=== PATIENT | male | born 1945 | race Caucasian/White ===

== ENCOUNTER 2016-11-30 05:39 | Observation (INO) | payer MEDICARE, BC ==
[2016-11-27 10:18] VITALS: BMI 23.5
[2016-11-30] VITALS (27 sets, daily range): BP systolic 98–140; BP diastolic 54–86; PULSE 52–88; RESP 13–21; Ht 170.2 cm; Wt 70.1 kg
[~2016-11-30] VITALS: Ht 170.2 cm; Wt 70.1 kg
--- NOTE | 2016-11-30 06:20 | HPN ---
Date/Time of Note Date/Time of Note DATE: 11/30/16 TIME: 06:20 Interval H&P Admission Note Pt. seen H&P reviewed: No system changes JN SIDDIQUI MD Nov 30, 2016 06:20
[2016-11-30] MEDS ORDERED: ENOX100D2 SC (06:34)
[2016-11-30] MEDS ORDERED: ATOR40TA68 PO (06:34)
[2016-11-30] MEDS ORDERED: HYDR25TA6 PO (06:34)
[2016-11-30] MEDS ORDERED: COU2 PO (06:34)
[2016-11-30] MEDS ORDERED: METO100T13 PO (06:34)
[2016-11-30] MEDS ORDERED: ENAL5TAB PO (06:34)
[2016-11-30 07:03] LABS: BASOPHILS % 0.5 % (0.0-2.0); EOSINOPHILS # 0.3 10^3/ul (0.0-0.5); EOSINOPHILS % 3.5 % (0.0-7.0); HEMATOCRIT 41.8 % (42.0-52.0); LYMPHOCYTES % 12.1 % (15.0-51.0); MEAN CORPUSCULAR HEMOGLOBIN 28.8 pg (29.0-33.0); MEAN CORPUSCULAR HGB CONC 33.5 g/dl (32.0-37.0); MEAN PLATELET VOLUME 11.5 fl (7.4-10.4); MONOCYTE # 0.8 10^3/ul (0.3-0.9); MONOCYTES % 9.1 % (0.0-11.0); NEUTROPHILS % 74.4 % (39.0-77.0); PLATELET COUNT 158 10^3/UL (140-415); RED BLOOD COUNT 4.86 10^6/ul (4.70-6.10); RED CELL DISTRIBUTION WIDTH 14.9 % (11.5-14.5); WHITE BLOOD COUNT 8.3 10^3/ul (4.8-10.8)
[2016-11-30] MEDS ORDERED: FENTAnyl 50 MCG/ML VIAL ONE (07:04)
[2016-11-30] MEDS ORDERED: MIDAZOLAM 1 MG/ML 2 ML INJ ONE (07:04)
[2016-11-30 07:15] LABS: INR 1.1; PROTIME 14.2 Sec (12.2-14.2); PT RATIO 1.1
[2016-11-30 07:16] LABS: ALBUMIN 3.8 g/dl (3.3-4.9); ALBUMIN/GLOBULIN RATIO 1.46; BILIRUBIN,INDIRECT 0.6 mg/dl (0-1.1); BILIRUBIN,TOTAL 0.6 mg/dl (0.2-1.3); PARTIAL THROMBOPLASTIN TIME 34.3 Sec (25.0-35.0); TOTAL PROTEIN 6.4 g/dl (6.1-8.1)
[2016-11-30] MEDS ORDERED: ROPIVACAINE 0.5 % 30 ML VIAL ONE ×2 (07:16→08:16)
[2016-11-30] MEDS ORDERED: BUPIVACAINE 0.5% (SDV) 30 ML INJ ONE (07:17)
[2016-11-30 07:18] LABS: CALCIUM 9.5 mg/dl (8.4-10.2); CREATININE 0.87 mg/dl (0.61-1.24); POTASSIUM 3.5 mmol/L (3.5-5.1)
[2016-11-30] MEDS ORDERED: GELATIN SIZE 100 SPONGE ONE (08:16)
[2016-11-30] MEDS ORDERED: THROMBIN 5000 UNIT VIAL ONE (08:16)
[2016-11-30] MEDS ORDERED: POVIDONE IODINE 10% 28.4 GM OINT ONE (08:17)
[2016-11-30] MEDS ORDERED: POLYMYXIN/BACITRACIN 1L IRRIG ONE ×2 (08:17→10:36)
[2016-11-30] MEDS ORDERED: ONDANSETRON 4 MG INJ ONE (11:33)
[2016-11-30] MEDS ORDERED: PROPOFOL 20 ML ONE (11:33)
[2016-11-30] MEDS ORDERED: CEFAZOLIN 1 GM INJ ONE (11:33)
[2016-11-30] MEDS ORDERED: ROCURONIUM 50 MG INJ ONE (11:33)
[2016-11-30] MEDS ORDERED: LIDOCAINE 2% (SDV) 5 ML INJ ONE (11:33)
[2016-11-30] MEDS: SOD CHLORIDE 0.9% 1,000 ML IV SCH ×3 (12:26→22:26)
[2016-11-30] MEDS ORDERED: CEFAZOLIN 1 GM INJ IV SCH (12:30)
[2016-11-30] MEDS ORDERED: BISACODYL 10 MG SUPP PR PRN (12:30)
[2016-11-30] MEDS ORDERED: DIPHENHYDRAMINE 25 MG CAP PO PRN (12:30)
[2016-11-30] MEDS ORDERED: ONDANSETRON 4 MG INJ IV PRN ×2 (12:30→13:00)
[2016-11-30] MEDS ORDERED: morphine 10 MG INJ IV PRN (12:30)
--- NOTE | 2016-11-30 12:37 | OPPN ---
Date/Time of Note Date/Time of Note DATE: 11/30/16 TIME: 12:37 JN SIDDIQUI MD Nov 30, 2016 12:37
[2016-11-30] MEDS ORDERED: morphine 1 MG/ML 30 ML (PCA) ONE (12:39)
[2016-11-30] MEDS ORDERED: NALOXONE (0.4 MG/ML) INJ IV PRN (13:00)
[2016-11-30] MEDS: morphine 1 MG/ML 30 ML (PCA) IV SCH (13:00)
[2016-11-30] MEDS ORDERED: DIPHENHYDRAMINE 50 MG INJ IV PRN (13:00)
[2016-11-30] MEDS ORDERED: FENTAnyl 50 MCG/ML VIAL IV PRN (13:00)
[2016-11-30] MEDS ORDERED: HYDROmorphONE (0.2 MG/ML) 10ML SYG IV PRN ×2 (13:00)
[2016-11-30] MEDS ORDERED: METOCLOPRAMIDE 10 MG INJ IV PRN (13:00)
[2016-11-30] MEDS ORDERED: MEPERIDINE 25 MG INJ IV PRN (13:00)
[2016-11-30] MEDS: CEFAZOLIN 1 GM/50 ML (PMX) 50 ML IVPB SCH ×2 (13:10→20:20)
[2016-11-30] MEDS: METOPROLOL (XL) 100 MG TAB PO SCH ×2 (14:00→20:22)
[2016-11-30] MEDS: ENALAPRIL 5 MG TAB PO SCH (14:00)
--- NOTE | 2016-11-30 16:02 | RADRPT ---
PROCEDURE: X-ray fluoroscopy guidance. CLINICAL INDICATION: Left ankle fusion. TECHNIQUE: Fluoroscopic guidance was utilized in the region of the left ankle for the procedure. Fluoroscopy time: 1.1 minutes Number of images/sequences: 15 images. COMPARISON: None available. FINDINGS: The images demonstrate postoperative change related to ankle fusion with an intramedullar y nail and proximal and distal interlocking screws. There is also plate and screw fixation hardware anterior to the ankle joint. IMPRESSION: 1. X-ray fluoroscopic guidance utilized for the intraoperative procedure. RPTAT: HLBP .Lei Charles MD, Date Time Electronically viewed and signed by .Lei Charles MD, MD on 11/30/2016 16:02 .P/
--- NOTE | 2016-11-30 17:37 | OPR ---
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 OPERATIONS: 1. Oblique fibular osteotomy and removal of the distal fibular bony portion. 2. Arthrodesis of the left ankle. 3. Arthrodesis of the left subtalar joint. 4. Insertion of autograft ignite and augment into the arthrodesis sites. 5. Insertion of a TTC Valor intramedullary nail 10 mm x 150 mm with cross screws. 6. Use of fluoroscopy to verify position alignment of the fusion and hardware. 7. Short leg cast. Extremely complex difficult procedure because of the patient had severe cystic changes in his ankle with bone loss and a lot of fibrosis and scarring. Because of the abnormal anatomy, the difficulty cleaning out the anatomy and realigning the leg, inserting the veronica and an additional 60 minutes of time was spent (22). SURGEON: Dr. Abdiel Hendrix. HAM STRIPPER: Dr. Jose Eduardo Hendrix. SECOND SONG LYRICIST: Dr. KESHA Diaz. ANESTHESIA: General with popliteal block. TOURNIQUET TIME: 127 minutes. OPERATIVE PROCEDURE: The patient taken operating placed supine position. Satisfactory popliteal block was given and satisfactory general anesthesia was administered and 2 g Ancef intravenously. The left leg was prepped and draped in usual manner. Incision was made along the fibula and carried for 6 cm proximal and then angled toward the fourth metatarsal. Full- thickness flaps were made. The periosteum was lifted up over the fibula anteriorly then reflected posteriorly being careful not to injure the peroneal tendons. Several centimeters above the ankle joint an oblique fibular osteotomy was made with a saw and then finished with an osteotome. The entire distal portion of the fibula was then removed to be used later as bone graft. The ankle joint was quite scarred in and abnormal. There was scar tissue which was sent for Gram stain, which was negative for any cells or infection. Tissue was also sent for culture and sensitivity. Using a laminar cigar packer and grader the articular surfaces were quite cystic and most of the distal tibia and the talus and the talus was collapsed. Different angled curettes were used to remove all the cystic material to subchondral bone. Including over the area of the medial malleolus. A bur was used to remove 1 mm of bone to good bleeding surface throughout the distal tibia and medial malleolus. Osteophytes were removed anteriorly and laterally. Then 1 mm of bone was then removed along the talar dome. More bone had to be removed medially than laterally because of the severe cystic change. Multiple "spot welds" were made to facilitate healing in the talus and the tibia. Multiple drill holes were made at 0.062 K-wire in multiple holes were made with an osteotome. Attention turned the subtalar joint. She also had degenerative changes, but not as bad. Th articular surface was removed with an osteotome and then with a curette until all good bleeding surfaces were seen. Lamina cigar packer and grader was used to facilitate access. After all the articular cartilage had been removed the sinus tarsi was completely cleaned out. A bur was used to bur along the sinus tarsi and remove 1 mm bone along the subtalar joint. Multiple spot welds were made in the talus and calcaneus. Multiple drill holes were made. Multiple osteotome holes were made as well. Once everything had been adequately prepared, the fibula was ground up in a bone mill and mixed with blood and ignite allograft and also augment. The guide pin was inserted from the [place]hel[place] TTC nail. We checked in AP and lateral planes, once it was seen to be in good position we put a K-wire in laterally to hold the ankle in good position. Both mediolaterally and dorsum plantar dorsiflexion and slight valgus. The ankle was medialized. The calcaneus, talus and tibia were reamed up to a 10.5 of a 10 nail by 150 mm could be inserted. Prior to inserting the nail bone graft was inserted, particularly in the medial aspect of the ankle were it was deficient, throughout the ankle and throughout the subtalar joint and sinus tarsi and packed in tightly. With the foot positioned appropriately the Valor nail was inserted. Excellent position and alignment were seen in AP and lateral fluoroscopic views. The proximal screws were placed through stab holes medially and verified under fluoroscopy. The calcaneal screw was placed next. We compressed the veronica, we put in 1 more calcaneal pin from lateral incision. Elected not to put the subtalar pin because the subtalar bone was so deficient. The final fluoroscopic view showed excellent position and alignment of the veronica and the screws in AP, lateral, and axial planes with good position of the foot. The tourniquet was released. Bleeders were coagulated. Wounds irrigated with antibiotic solution through the lap sponges so we did not take out any bone graft. Additional bone graft was then packed tightly in the ankle circumferentially, as well as in the subtalar joint circumferential. The subcutaneous tissues were then closed with 2-0 and 3-0 dyed Vicryl and the skin with 4-0 black nylon. Ankle block was done 0.5 percent ropivacaine on the saphenous nerve. A compression dressing was then applied, as well as history short-leg cast in neutral position. At the end of the procedure, sponge, needle count was correct. The patient tolerated the procedure well and taken to recovery room. SONG LYRICIST ORTHOPEDIC SURGEON: Director Of Occupational Therapy orthopedic surgeon was used at my request. The assistant pastry chef helped with the exposure. Director Of Occupational Therapy also helped to insert the nail while I held the ankle reduced in proper position and helped with bone grafting. Without a skilled orthopedic surgeon assistant pastry chef this procedure could not have been performed appropriately should be compensated as such. Dictated By: Abdiel Hendrix MD /[email or web address]/amira /Document#: [id number] KATHRYN
[2016-11-30] MEDS: TAMSULOSIN (SR) 0.4 MG CAP PO SCH (20:20)
[2016-11-30] MEDS: SENNA/DOCUSATE NA (8.6MG/50MG) TAB PO SCH (20:21)
[2016-11-30] MEDS: ATORVASTATIN 40 MG TAB PO SCH (20:21)
--- NOTE | 2016-11-30 23:05 | CONS ---
DATE OF ADMISSION: 11/30/2016 DATE OF CONSULTATION: 11/30/2016 Thank you very much for allowing me to evaluate the above patient, who just underwent left ankle surgery. HISTORICAL EVENTS: As you well know, this patient has had progressive disabling pain involving his left ankle and underwent surgical intervention today. Postoperatively, he denies cough, wheezing, shortness of breath, nausea, vomiting, abdominal or chest pain. PAST MEDICAL HISTORY: Includes: 1. Known coronary disease, undergoing a Cardiolite nuclear study in April of this year that revealed no ischemia. 2. Aortic valve replacement. 3. Dilated aorta, as revealed by CT scanning in October 2016, with the aorta measuring 4.37 cm. 4. History of prostate cancer. 5. History of endocarditis and placement of aortic valve in 1992. 6. History of ischemic colitis. 7. OK in 2006. 8. Degenerative arthritis. 9. Hyperlipidemia. MEDICATION: 1. Atorvastatin 40 mg per day. 2. Enalapril 10 mg per day. 3. Hydrochlorothiazide 25 mg per day. 4. Lopressor 100 mg a day. 5. Coumadin 4 mg per day. 6. Flomax 0.4 mg per day. PHYSICAL EXAMINATION: GENERAL APPEARANCE: [place] male in no acute distress. VITAL SIGNS: BP 128/80, pulse 70, respirations 20. He was afebrile. HEENT: Eyes, extraocular muscles were full. Nose, mouth and throat, normal. NECK: Was supple. There was no jugular venous distention, thyroid enlargement, adenopathy. LUNGS: Clear. HEART: Rhythm regular. No murmur. No 3rd or 4th sound. ABDOMEN: Nontender. Liver and spleen were not palpable. No mass or tenderness were noted. EXTREMITIES: No edema. Calves nontender. IMPRESSION: 1. Stable postop, left ankle. 2. History of hyperlipidemia. To continue statin. 3. Aortic valve replacement, having been maintained on Coumadin and received Lovenox bridge. Will review with you when you would like to begin Coumadin again. 4. Hypertension. Will continue angiotensin-converting enzyme inhibitor and angiotensin II receptor carlita but hold for systolic less than 110 or heart rate less than 55. 5. History of difficulty voiding. A Jackman catheter to be placed and will monitor postvoid residuals. Dictated By: Mark De Jesus MD /[email or web address]/ramírez /Document#: [id number] CC: Abdiel Hendrix MD;*EndCC*
[2016-12-01 00:12] VITALS: BP 112/66; RESP 19
[2016-12-01] MEDS: SOD CHLORIDE 0.9% 1,000 ML IV SCH ×2 (01:38→17:16)
[2016-12-01] MEDS: CEFAZOLIN 1 GM/50 ML (PMX) 50 ML IVPB SCH ×3 (03:47→21:11)
[2016-12-01 05:29] VITALS: BP 118/63; PULSE 87; RESP 18
[2016-12-01 05:32] LABS: INR 1.23; PROTIME 15.6 Sec (12.2-14.2); PT RATIO 1.2
[2016-12-01 05:33] LABS: PARTIAL THROMBOPLASTIN TIME 36.5 Sec (25.0-35.0)
[2016-12-01 05:34] LABS: MAGNESIUM 1.5 mg/dl (1.7-2.5); PHOSPHORUS 3.2 mg/dl (2.5-4.9)
[2016-12-01 05:45] LABS: BASOPHILS % 0.1 % (0.0-2.0); EOSINOPHILS # 0.1 10^3/ul (0.0-0.5); EOSINOPHILS % 1.3 % (0.0-7.0); HEMATOCRIT 36.3 % (42.0-52.0); HEMOGLOBIN 11.7 g/dl (14.0-18.0); LYMPHOCYTES # 0.9 10^3/ul (0.8-2.9); LYMPHOCYTES % 9.3 % (15.0-51.0); MEAN CORPUSCULAR HEMOGLOBIN 28.2 pg (29.0-33.0); MEAN CORPUSCULAR HGB CONC 32.2 g/dl (32.0-37.0); MEAN CORPUSCULAR VOLUME 87.5 fl (82.0-101.0); MEAN PLATELET VOLUME 11.7 fl (7.4-10.4); MONOCYTES % 10.2 % (0.0-11.0); NEUTROPHILS % 78.9 % (39.0-77.0); PLATELET COUNT 139 10^3/UL (140-415); POSITIVE DIFF @See below; RED BLOOD COUNT 4.15 10^6/ul (4.70-6.10); RED CELL DISTRIBUTION WIDTH 15.1 % (11.5-14.5); WHITE BLOOD COUNT 9.5 10^3/ul (4.8-10.8)
--- NOTE | 2016-12-01 06:49 | PN ---
Date/Time of Note Date/Time of Note DATE: 12/01/16 TIME: 06:43 Assessment/Plan VTE Prophylaxis VTE Prophylaxis Intervention: SCD's Lines/Catheters IV Catheter Type (from Nrsg): Peripheral IV Urinary Cath still in place: Yes Reason Cath still needed: urinary retention Assessment/Plan Chief Complaint/Hosp Course POD # 1 s/p L TTC fusion with nail Problems: Assessment/Plan Continue pain control -discussed with patient that pain will start increasing as block wears off PT to start today Coumadin per Supervisor [employer] Elevation at all times while in bed Continue buenrostro Post-op abx Dispo: pending, possible DC tomorrow Subjective 24 Hr Interval Summary Free Text/Dictation Patient overall doing well. Had buenrostro placed yesterday afternoon for urinary retention. Denies pain, states foot is still numb. Denies SOB/CP. Tolerating diet. Exam/Review of Systems Vital Signs Vitals Vital Signs Date Time Temp Pulse Resp B/P Pulse Ox O2 Delivery O2 Flow Rate FiO2 12/01/16 05:29 98.3 87 18 118/63 98 Room Air Intake and Output 11/30/16 11/30/16 12/01/16 15:00 23:00 07:00 Intake Total 1150 ml 1200 ml 1700 ml Output Total 30 ml 1900 ml 1700 ml Balance 1120 ml -700 ml 0 ml Exam Foot elevated in cast, cast well fitting Toes WWP Patient denies sensation/motor function this AM Results Result Diagram: 12/01/16 0450 11/30/16 0610 Results 24 hrs Laboratory Tests Test 12/01/16 04:50 White Blood Count 9.5 Red Blood Count 4.15 L Hemoglobin 11.7 L Hematocrit 36.3 L Mean Corpuscular Volume 87.5 Mean Corpuscular Hemoglobin 28.2 L Mean Corpuscular Hemoglobin Concent 32.2 Red Cell Distribution Width 15.1 H Platelet Count 139 L Mean Platelet Volume 11.7 H Neutrophils % 78.9 H Lymphocytes % 9.3 L Monocytes % 10.2 Eosinophils % 1.3 Basophils % 0.1 Nucleated Red Blood Cells % 0.0 Neutrophils # (Manual) 7.5 Lymphocytes # 0.9 Monocytes # 1.0 H Eosinophils # 0.1 Basophils # 0.0 Nucleated Red Blood Cells # 0.0 Prothrombin Time 15.6 H Prothrombin Time Ratio 1.2 INR International Normalized Ratio 1.23 Activated Partial Thromboplast Time 36.5 H Phosphorus Level 3.2 Magnesium Level 1.5 L Medications Medications Current Medications Cephalexin (Keflex) 500 mg Q8 PO ; Start 12/02/16 at 14:00 Oxycodone/ Acetaminophen 1 tab 1 tab Q4H PRN PO PAIN; Start 11/30/16 at 07:00 Cefazolin Sodium (Ancef 1 Gm/50 ml (Pmx)) 50 ml @ 100 mls/hr Q8H IVPB Last administered on 12/01/16 03:47; Admin Dose 100 MLS/HR; Start 11/30/16 at 12:30 ; Stop 12/02/16 at 04:59 Senna/Docusate Sodium (Senokot-S) 1 tab BID PO Last administered on 11/30/16 20:21; Admin Dose 1 TAB; Start 11/30/16 at 21:00 Magnesium Hydroxide (Milk Of Mag) 30 ml HS PRN PO IF NO BM BY POD #2; Start at 21:00; Stop 12/02/16 at 23:59 Bisacodyl 10 mg 10 mg DAILY PRN [place] CONSTIPATION; Start 11/30/16 at 12:30 Sodium Chloride (NS) 1,000 ml @ 100 mls/hr Q10H IV Last administered on 01:38; Admin Dose 100 MLS/HR; Start 11/30/16 at 12:26 Oxycodone/ Acetaminophen (Percocet (5/ 325)) 2 tab Q4H PRN PO PAIN; Start 11/30 at 12:30 Morphine Sulfate (morphine) 5 mg Q4H PRN IV PAIN LEVEL 7-10; Start 11/30/16 at 12:30 Ondansetron HCl (Zofran Inj) 4 mg Q4H PRN IV NAUSEA AND/OR VOMITING; Start 02/05 at 12:30 Diphenhydramine HCl (Benadryl) 25 mg Q4H PRN PO ITCHING; Start 11/30/16 at 12: 30 Morphine Sulfate (morphine) 1.5 MG DOSE 10 ... Q4PCA IV Last administered on 13:00; Admin Dose 30 MG; Start 11/30/16 at 12:30 Naloxone HCl (Narcan) 0.2 mg Q2M PRN IV FOR RESP RATE 8 OR LESS; Start at 13:00 Atorvastatin Calcium (Lipitor) 40 mg QHS PO Last administered on 11/30/16 20: 21; Admin Dose 40 MG; Start 11/30/16 at 21:00 Enalapril Maleate (Vasotec) 5 mg DAILY PO ; Start 11/30/16 at 14:00 Metoprolol Succinate (Toprol Xl) 50 mg BID PO Last administered on 11/30/16 20 :22; Admin Dose 50 MG; Start 11/30/16 at 14:00 Tamsulosin HCl (Flomax) 0.4 mg HS PO Last administered on 11/30/16 20:20; Admin Dose 0.4 MG; Start 11/30/16 at 21:00 JN SIDDIQUI MD Dec 01, 2016 06:49
[2016-12-01 08:02] VITALS: BP 121/61; RESP 18
[2016-12-01] MEDS: ENALAPRIL 5 MG TAB PO SCH (08:22)
[2016-12-01] MEDS: SENNA/DOCUSATE NA (8.6MG/50MG) TAB PO SCH ×2 (08:22→21:14)
[2016-12-01] MEDS: METOPROLOL (XL) 100 MG TAB PO SCH ×2 (08:23→21:14)
[2016-12-01] MEDS ORDERED: POTASSIUM CHLORIDE (SR) 10 MEQ TAB PO ONE (08:30)
--- NOTE | 2016-12-01 08:35 | CONS ---
Date/Time of Note Date/Time of Note DATE: 12/01/16 TIME: 08:33 Assessment/Plan Assessment/Plan Additional Assessment/Plan 1. Stable post op left foot surgery 2. Hx HBP, controlled 3. Aortic valve dz, stable, to resume coumadin today 4. Electrolyte imbalance, will replace 5. Prostatism, will leave buenrostro in place 1 additional day, u/a and cult ordered Consultation Date/Type/Reason Admit Date/Time Initial Consult Date Detailed Summary Cardiovascular: No chest pain, No orthopenea Gastrointestinal: no complaints Genitourinary: other (buenrostro in place) Musculoskeletal: other (mild left ankloe pain) Exam/Review of Systems Vital Signs Vitals Vital Signs Date Time Temp Pulse Resp B/P Pulse Ox O2 Delivery O2 Flow Rate FiO2 12/01/16 08:02 97.8 70 18 121/61 99 12/01/16 05:29 Room Air Intake and Output 11/30/16 11/30/16 12/01/16 15:00 23:00 07:00 Intake Total 1150 ml 1200 ml 1700 ml Output Total 30 ml 1900 ml 1700 ml Balance 1120 ml -700 ml 0 ml Exam Neck: No jvd Respiratory: clear to auscultation Cardiovascular: regular rate and rhythm Gastrointestinal: soft Extremities: No edema (right leg and no calf tend, left in cast) Results Result Diagram: 12/01/16 0450 11/30/16 0610 Results 24 hrs Laboratory Tests Test 12/01/16 04:50 White Blood Count 9.5 Red Blood Count 4.15 L Hemoglobin 11.7 L Hematocrit 36.3 L Mean Corpuscular Volume 87.5 Mean Corpuscular Hemoglobin 28.2 L Mean Corpuscular Hemoglobin Concent 32.2 Red Cell Distribution Width 15.1 H Platelet Count 139 L Mean Platelet Volume 11.7 H Neutrophils % 78.9 H Lymphocytes % 9.3 L Monocytes % 10.2 Eosinophils % 1.3 Basophils % 0.1 Nucleated Red Blood Cells % 0.0 Neutrophils # (Manual) 7.5 Lymphocytes # 0.9 Monocytes # 1.0 H Eosinophils # 0.1 Basophils # 0.0 Nucleated Red Blood Cells # 0.0 Prothrombin Time 15.6 H Prothrombin Time Ratio 1.2 INR International Normalized Ratio 1.23 Activated Partial Thromboplast Time 36.5 H Phosphorus Level 3.2 Magnesium Level 1.5 L Medications Medications Current Medications Cephalexin (Keflex) 500 mg Q8 PO ; Start 12/02/16 at 14:00 Oxycodone/ Acetaminophen 1 tab 1 tab Q4H PRN PO PAIN; Start 11/30/16 at 07:00 Cefazolin Sodium (Ancef 1 Gm/50 ml (Pmx)) 50 ml @ 100 mls/hr Q8H IVPB Last administered on 12/01/16 03:47; Admin Dose 100 MLS/HR; Start 11/30/16 at 12:30 ; Stop 12/02/16 at 04:59 Senna/Docusate Sodium (Senokot-S) 1 tab BID PO Last administered on 12/01/16 08:22; Admin Dose 1 TAB; Start 11/30/16 at 21:00 Magnesium Hydroxide (Milk Of Mag) 30 ml HS PRN PO IF NO BM BY POD #2; Start at 21:00; Stop 12/02/16 at 23:59 Bisacodyl 10 mg 10 mg DAILY PRN [place] CONSTIPATION; Start 11/30/16 at 12:30 Sodium Chloride (NS) 1,000 ml @ 100 mls/hr Q10H IV Last administered on 01:38; Admin Dose 100 MLS/HR; Start 11/30/16 at 12:26 Oxycodone/ Acetaminophen (Percocet (5/ 325)) 2 tab Q4H PRN PO PAIN; Start 11/30 at 12:30 Morphine Sulfate (morphine) 5 mg Q4H PRN IV PAIN LEVEL 7-10; Start 11/30/16 at 12:30 Ondansetron HCl (Zofran Inj) 4 mg Q4H PRN IV NAUSEA AND/OR VOMITING; Start 02/05 at 12:30 Diphenhydramine HCl (Benadryl) 25 mg Q4H PRN PO ITCHING; Start 11/30/16 at 12: 30 Morphine Sulfate (morphine) 1.5 MG DOSE 10 ... Q4PCA IV Last administered on 13:00; Admin Dose 30 MG; Start 11/30/16 at 12:30 Naloxone HCl (Narcan) 0.2 mg Q2M PRN IV FOR RESP RATE 8 OR LESS; Start at 13:00 Atorvastatin Calcium (Lipitor) 40 mg QHS PO Last administered on 11/30/16 20: 21; Admin Dose 40 MG; Start 11/30/16 at 21:00 Enalapril Maleate (Vasotec) 5 mg DAILY PO Last administered on 12/01/16 08:22 ; Admin Dose 5 MG; Start 11/30/16 at 14:00 Metoprolol Succinate (Toprol Xl) 50 mg BID PO Last administered on 12/01/16 08 :23; Admin Dose 50 MG; Start 11/30/16 at 14:00 Tamsulosin HCl (Flomax) 0.4 mg HS PO Last administered on 11/30/16 20:20; Admin Dose 0.4 MG; Start 11/30/16 at 21:00 KAELA BALDERRAMA MD Dec 01, 2016 08:35
[2016-12-01] MEDS ORDERED: MAGNESIUM SULFATE 3 GM in SOD CHLORIDE 0.9% 100 ML IVPB ONE (09:00)
[2016-12-01] MEDS ORDERED: WARFARIN 2 MG TAB PO ONE (17:00)
[2016-12-01] MEDS: OXYCODONE/ACETAMINOPHEN (5/325) TAB PO PRN ×2 (17:16→21:13)
[2016-12-01] MEDS: morphine 1 MG/ML 30 ML (PCA) IV SCH (18:49)
[2016-12-01 19:15] VITALS: BP 135/67; RESP 19
[2016-12-01 19:41] LABS: ADD UMIC YES; UR ASCORBIC ACID NEGATIVE (NEGATIVE); UR BILIRUBIN (Dip) NEGATIVE (NEGATIVE); UR BLOOD (Dip) 2+ mg/dL (NEGATIVE); UR CLARITY CLEAR (CLEAR); UR COLOR STRAW (YELLOW); UR GLUCOSE (Dip) NEGATIVE (NEGATIVE); UR KETONES (Dip) NEGATIVE (NEGATIVE); UR LEUKOCYTE ESTERASE (Dip) NEGATIVE Leu/ul (NEGATIVE); UR NITRITE (Dip) NEGATIVE (NEGATIVE); UR RBC 7 /HPF (0-5); UR SPECIFIC GRAVITY (Dip) 1.008 (1.003-1.030); UR TOTAL PROTEIN (Dip) NEGATIVE (NEGATIVE); UR UROBILINOGEN (Dip) NEGATIVE (NEGATIVE)
[2016-12-01] MEDS: ATORVASTATIN 40 MG TAB PO SCH (21:11)
[2016-12-01] MEDS: TAMSULOSIN (SR) 0.4 MG CAP PO SCH (21:14)
[2016-12-02] MEDS: OXYCODONE/ACETAMINOPHEN (5/325) TAB PO PRN ×5 (02:12→21:33)
[2016-12-02 02:20] VITALS: BP 154/74; RESP 18
[2016-12-02] MEDS: SOD CHLORIDE 0.9% 1,000 ML IV SCH ×2 (04:26→14:26)
[2016-12-02] MEDS: CEFAZOLIN 1 GM/50 ML (PMX) 50 ML IVPB SCH (04:32)
--- NOTE | 2016-12-02 06:23 | PN ---
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 Pain well controlled. Denies CP/SOB. Got OOB with PT. Exam/Review of Systems Vital Signs Vitals Vital Signs Date Time Temp Pulse Resp B/P Pulse Ox O2 Delivery O2 Flow Rate FiO2 12/02/16 02:20 98.6 73 18 154/74 96 12/01/16 05:29 Room Air Intake and Output 12/01/16 12/01/16 12/02/16 15:00 23:00 07:00 Intake Total 2216 ml 920 ml Output Total 2250 ml 2200 ml Balance -34 ml -1280 ml Exam Leg elevated Cast in place with some blood staining Toes WWP Wiggles all toes Sensation intact Results Result Diagram: 12/01/16 0450 11/30/16 0610 Results 24 hrs Laboratory Tests Test 12/01/16 14:45 12/01/16 20:10 Urine Color STRAW Urine Clarity CLEAR Urine pH 5.0 Urine Specific [place] 1.008 Urine Ketones NEGATIVE Urine Nitrite NEGATIVE Urine Bilirubin NEGATIVE Urine Urobilinogen NEGATIVE Urine Leukocyte Esterase NEGATIVE Urine Microscopic RBC 7 H Urine Microscopic WBC 2 Urine Hemoglobin 2+ H Urine Glucose NEGATIVE Urine Total Protein NEGATIVE Vitamin D 1,25-Dihydroxy 34.9 Medications Medications Current Medications Cephalexin (Keflex) 500 mg Q8 PO ; Start 12/02/16 at 14:00 Oxycodone/ Acetaminophen (Percocet (5/ 325)) 1 tab Q4H PRN PO PAIN Last administered on 12/01/16 21:13; Admin Dose 1 TAB; Start 11/30/16 at 07:00 Senna/Docusate Sodium (Senokot-S) 1 tab BID PO Last administered on 12/01/16 21:14; Admin Dose 1 TAB; Start 11/30/16 at 21:00 Magnesium Hydroxide (Milk Of Mag) 30 ml HS PRN PO IF NO BM BY POD #2; Start at 21:00; Stop 12/02/16 at 23:59 Bisacodyl 10 mg 10 mg DAILY PRN [place] CONSTIPATION; Start 11/30/16 at 12:30 Sodium Chloride (NS) 1,000 ml @ 100 mls/hr Q10H IV Last administered on 17:16; Admin Dose 100 MLS/HR; Start 11/30/16 at 12:26 Oxycodone/ Acetaminophen (Percocet (5/ 325)) 2 tab Q4H PRN PO PAIN Last administered on 12/02/16 02:12; Admin Dose 2 TAB; Start 11/30/16 at 12:30 Morphine Sulfate (morphine) 5 mg Q4H PRN IV PAIN LEVEL 7-10; Start 11/30/16 at 12:30 Ondansetron HCl (Zofran Inj) 4 mg Q4H PRN IV NAUSEA AND/OR VOMITING; Start 02/05 at 12:30 Diphenhydramine HCl (Benadryl) 25 mg Q4H PRN PO ITCHING; Start 11/30/16 at 12: 30 Morphine Sulfate (morphine) 1.5 MG DOSE 10 ... Q4PCA IV Last administered on 18:49; Admin Dose 30 MG; Start 11/30/16 at 12:30 Naloxone HCl (Narcan) 0.2 mg Q2M PRN IV FOR RESP RATE 8 OR LESS; Start at 13:00 Atorvastatin Calcium (Lipitor) 40 mg QHS PO Last administered on 12/01/16 21: 11; Admin Dose 40 MG; Start 11/30/16 at 21:00 Enalapril Maleate (Vasotec) 5 mg DAILY PO Last administered on 12/01/16 08:22 ; Admin Dose 5 MG; Start 11/30/16 at 14:00 Metoprolol Succinate (Toprol Xl) 50 mg BID PO Last administered on 12/01/16 21 :14; Admin Dose 50 MG; Start 11/30/16 at 14:00 Tamsulosin HCl (Flomax) 0.4 mg HS PO Last administered on 12/01/16t 21:14; Admin Dose 0.4 MG; Start 11/30/16 at 21:00 JN SIDDIQUI MD Dec 02, 2016 06:23
[2016-12-02 08:19] VITALS: BP 129/62; RESP 18
--- NOTE | 2016-12-02 08:35 | CONS ---
Date/Time of Note Date/Time of Note DATE: 12/02/16 TIME: 08:32 Assessment/Plan Assessment/Plan Additional Assessment/Plan 1. Doing well right foot surgery 2. Aortic Valve, will inc Coumadin dose 3. Labs rev 4. Will dc buenrostro and check post void residual Consultation Date/Type/Reason Admit Date/Time Nov 30, 2016 at 12:57 Detailed Summary Cardiovascular: No chest pain Gastrointestinal: no complaints Genitourinary: other (buenrostro in place) Musculoskeletal: other (mild left foot pain) Exam/Review of Systems Vital Signs Vitals Vital Signs Date Time Temp Pulse Resp B/P Pulse Ox O2 Delivery O2 Flow Rate FiO2 12/02/16 08:19 98.6 88 18 129/62 93 12/01/16 05:29 Room Air Intake and Output 12/01/16 12/01/16 12/02/16 15:00 23:00 07:00 Intake Total 2216 ml 920 ml Output Total 2250 ml 2200 ml Balance -34 ml -1280 ml Exam Neck: No jvd Cardiovascular: regular rate and rhythm Gastrointestinal: soft Extremities: No edema (and no calf tend right foot, left in cast) Results Result Diagram: 12/01/16 0450 11/30/16 0610 Results 24 hrs Laboratory Tests Test 12/01/16 14:45 12/01/16 20:10 Urine Color STRAW Urine Clarity CLEAR Urine pH 5.0 Urine Specific [place] 1.008 Urine Ketones NEGATIVE Urine Nitrite NEGATIVE Urine Bilirubin NEGATIVE Urine Urobilinogen NEGATIVE Urine Leukocyte Esterase NEGATIVE Urine Microscopic RBC 7 H Urine Microscopic WBC 2 Urine Hemoglobin 2+ H Urine Glucose NEGATIVE Urine Total Protein NEGATIVE Vitamin D 1,25-Dihydroxy 34.9 Medications Medications Current Medications Cephalexin (Keflex) 500 mg Q8 PO ; Start 12/02/16 at 14:00 Oxycodone/ Acetaminophen (Percocet (5/ 325)) 1 tab Q4H PRN PO PAIN Last administered on 12/01/16 21:13; Admin Dose 1 TAB; Start 11/30/16 at 07:00 Senna/Docusate Sodium (Senokot-S) 1 tab BID PO Last administered on 12/01/16 21:14; Admin Dose 1 TAB; Start 11/30/16 at 21:00 Magnesium Hydroxide (Milk Of Mag) 30 ml HS PRN PO IF NO BM BY POD #2; Start at 21:00; Stop 12/02/16 at 23:59 Bisacodyl 10 mg 10 mg DAILY PRN [place] CONSTIPATION; Start 11/30/16 at 12:30 Sodium Chloride (NS) 1,000 ml @ 100 mls/hr Q10H IV Last administered on 17:16; Admin Dose 100 MLS/HR; Start 11/30/16 at 12:26 Oxycodone/ Acetaminophen (Percocet (5/ 325)) 2 tab Q4H PRN PO PAIN Last administered on 12/02/16 06:38; Admin Dose 2 TAB; Start 11/30/16 at 12:30 Morphine Sulfate (morphine) 5 mg Q4H PRN IV PAIN LEVEL 7-10; Start 11/30/16 at 12:30 Ondansetron HCl (Zofran Inj) 4 mg Q4H PRN IV NAUSEA AND/OR VOMITING; Start 02/05 at 12:30 Diphenhydramine HCl (Benadryl) 25 mg Q4H PRN PO ITCHING; Start 11/30/16 at 12: 30 Morphine Sulfate (morphine) 1.5 MG DOSE 10 ... Q4PCA IV Last administered on 18:49; Admin Dose 30 MG; Start 11/30/16 at 12:30 Naloxone HCl (Narcan) 0.2 mg Q2M PRN IV FOR RESP RATE 8 OR LESS; Start at 13:00 Atorvastatin Calcium (Lipitor) 40 mg QHS PO Last administered on 12/01/16 21: 11; Admin Dose 40 MG; Start 11/30/16 at 21:00 Enalapril Maleate (Vasotec) 5 mg DAILY PO Last administered on 12/01/16 08:22 ; Admin Dose 5 MG; Start 11/30/16 at 14:00 Metoprolol Succinate (Toprol Xl) 50 mg BID PO Last administered on 12/01/16 21 :14; Admin Dose 50 MG; Start 11/30/16 at 14:00 Tamsulosin HCl (Flomax) 0.4 mg HS PO Last administered on 12/01/16 21:14; Admin Dose 0.4 MG; Start 11/30/16 at 21:00 KAELA BALDERRAMA MD Dec 02, 2016 08:35
[2016-12-02] MEDS ORDERED: WARFARIN 3 MG TAB PO SCH (08:40)
[2016-12-02] MEDS: METOPROLOL (XL) 100 MG TAB PO SCH ×2 (09:00→20:08)
[2016-12-02] MEDS: SENNA/DOCUSATE NA (8.6MG/50MG) TAB PO SCH ×2 (09:00→20:08)
[2016-12-02] MEDS: ENALAPRIL 5 MG TAB PO SCH (09:00)
[2016-12-02] MEDS: CEPHALEXIN 500 MG CAP PO SCH ×2 (13:52→21:32)
[2016-12-02 14:00] VITALS: BP 128/60; RESP 18
[2016-12-02 19:56] VITALS: BP 143/71; RESP 20
[2016-12-02] MEDS: ATORVASTATIN 40 MG TAB PO SCH (20:08)
[2016-12-02] MEDS: TAMSULOSIN (SR) 0.4 MG CAP PO SCH (20:08)
[2016-12-02] MEDS ORDERED: MAGNESIUM HYDROXIDE 30ML CUP PO PRN (21:00)
[2016-12-03] MEDS: SOD CHLORIDE 0.9% 1,000 ML IV SCH (00:26)
[2016-12-03] MEDS: OXYCODONE/ACETAMINOPHEN (5/325) TAB PO PRN ×2 (01:02→08:35)
[2016-12-03 02:12] VITALS: BP 122/64; RESP 22
[2016-12-03 05:24] LABS: BASOPHILS % 0.5 % (0.0-2.0); EOSINOPHILS # 0.3 10^3/ul (0.0-0.5); EOSINOPHILS % 3.2 % (0.0-7.0); HEMATOCRIT 32.6 % (42.0-52.0); HEMOGLOBIN 10.8 g/dl (14.0-18.0); LYMPHOCYTES % 11.7 % (15.0-51.0); MEAN CORPUSCULAR HEMOGLOBIN 28.7 pg (29.0-33.0); MEAN CORPUSCULAR HGB CONC 33.1 g/dl (32.0-37.0); MEAN CORPUSCULAR VOLUME 86.7 fl (82.0-101.0); MEAN PLATELET VOLUME 11.6 fl (7.4-10.4); MONOCYTE # 0.8 10^3/ul (0.3-0.9); MONOCYTES % 9.3 % (0.0-11.0); NEUTROPHIL # 6.5 10^3/ul (1.6-7.5); NEUTROPHILS % 75.1 % (39.0-77.0); PLATELET COUNT 142 10^3/UL (140-415); RED BLOOD COUNT 3.76 10^6/ul (4.70-6.10); RED CELL DISTRIBUTION WIDTH 14.9 % (11.5-14.5); WHITE BLOOD COUNT 8.6 10^3/ul (4.8-10.8)
[2016-12-03 05:33] LABS: INR 1.97; PROTIME 22.6 Sec (12.2-14.2); PT RATIO 1.8
[2016-12-03 05:47] LABS: CALCIUM 9.1 mg/dl (8.4-10.2); CREATININE 0.77 mg/dl (0.61-1.24); POTASSIUM 3.8 mmol/L (3.5-5.1)
--- NOTE | 2016-12-03 05:53 | PN ---
Date/Time of Note Date/Time of Note DATE: 12/03/16 TIME: 05:51 Assessment/Plan VTE Prophylaxis VTE Prophylaxis Intervention: SCD's Lines/Catheters IV Catheter Type (from Nrsg): Saline Lock Urinary Cath still in place: No Assessment/Plan Chief Complaint/Hosp Course POD # 3 s/p L TTC fusion with nail Problems: Assessment/Plan Okay to dc home today if okay with personal support worker Subjective 24 Hr Interval Summary Free Text/Dictation Doing well. Denies pain. Ready to go home. Able to void after buenrostro pull. Exam/Review of Systems Vital Signs Vitals Vital Signs Date Time Temp Pulse Resp B/P Pulse Ox O2 Delivery O2 Flow Rate FiO2 12/03/16 02:12 98.7 61 22 122/64 100 12/01/16 05:29 Room Air Intake and Output 12/02/16 12/02/16 12/03/16 15:00 23:00 07:00 Intake Total 700 ml 800 ml Output Total 450 ml 1400 ml Balance 250 ml -600 ml Exam Cast overwrapped leg elevated Wiggles toes Toes WWP Sensation intact across toes Results Result Diagram: 12/03/16 0423 11/30/16 0610 Results 24 hrs Laboratory Tests Test 12/03/16 04:23 White Blood Count 8.6 Red Blood Count 3.76 L Hemoglobin 10.8 L Hematocrit 32.6 L Mean Corpuscular Volume 86.7 Mean Corpuscular Hemoglobin 28.7 L Mean Corpuscular Hemoglobin Concent 33.1 Red Cell Distribution Width 14.9 H Platelet Count 142 Mean Platelet Volume 11.6 H Neutrophils % 75.1 Lymphocytes % 11.7 L Monocytes % 9.3 Eosinophils % 3.2 Basophils % 0.5 Nucleated Red Blood Cells % 0.0 Neutrophils # 6.5 Lymphocytes # 1.0 Monocytes # 0.8 Eosinophils # 0.3 Basophils # 0.0 Nucleated Red Blood Cells # 0.0 Prothrombin Time Pending Prothrombin Time Ratio 1.8 INR International Normalized Ratio 1.97 Medications Medications Current Medications Cephalexin (Keflex) 500 mg Q8 PO Last administered on 12/02/16 21:32; Admin Dose 500 MG; Start 12/02/16 at 14:00 Oxycodone/ Acetaminophen (Percocet (5/ 325)) 1 tab Q4H PRN PO PAIN Last administered on 12/01/16 21:13; Admin Dose 1 TAB; Start 11/30/16 at 07:00 Senna/Docusate Sodium (Senokot-S) 1 tab BID PO Last administered on 12/02/16 20:08; Admin Dose 1 TAB; Start 11/30/16 at 21:00 Bisacodyl 10 mg 10 mg DAILY PRN [place]; Start 11/30/16 at 12:30 Sodium Chloride (NS) 1,000 ml @ 100 mls/hr Q10H IV Last administered on 17:16; Admin Dose 100 MLS/HR; Start 11/30/16 at 12:26 Oxycodone/ Acetaminophen (Percocet (5/ 325)) 2 tab Q4H PRN PO PAIN Last administered on 12/03/16 01:02; Admin Dose 2 TAB; Start 11/30/16 at 12:30 Morphine Sulfate (morphine) 5 mg Q4H PRN IV PAIN LEVEL 7-10; Start 11/30/16 at 12:30 Ondansetron HCl (Zofran Inj) 4 mg Q4H PRN IV NAUSEA AND/OR VOMITING; Start 02/05 at 12:30 Diphenhydramine HCl (Benadryl) 25 mg Q4H PRN PO ITCHING; Start 11/30/16 at 12: 30 Morphine Sulfate (morphine) 1.5 MG DOSE 10 ... Q4PCA IV Last administered on 18:49; Admin Dose 30 MG; Start 11/30/16 at 12:30 Naloxone HCl (Narcan) 0.2 mg Q2M PRN IV FOR RESP RATE 8 OR LESS; Start at 13:00 Atorvastatin Calcium (Lipitor) 40 mg QHS PO Last administered on 12/02/16 20: 08; Admin Dose 40 MG; Start 11/30/16 at 21:00 Enalapril Maleate (Vasotec) 5 mg DAILY PO Last administered on 12/02/16 09:00 ; Admin Dose 5 MG; Start 11/30/16 at 14:00 Metoprolol Succinate (Toprol Xl) 50 mg BID PO Last administered on 12/02/16 20 :08; Admin Dose 50 MG; Start 11/30/16 at 14:00 Tamsulosin HCl (Flomax) 0.4 mg HS PO Last administered on 12/02/16t 20:08; Admin Dose 0.4 MG; Start 11/30/16 at 21:00 JN SIDDIQUI MD Dec 03, 2016 05:53
[2016-12-03] MEDS: CEPHALEXIN 500 MG CAP PO SCH (05:57)
--- NOTE | 2016-12-03 07:41 | CONS ---
Date/Time of Note Date/Time of Note DATE: 12/03/16 TIME: 07:35 Assessment/Plan Assessment/Plan Additional Assessment/Plan 1. Left foot surgery doing well 2. Aortic valve replacement, stable 3. Voiding without difficulty 4. Can dc if ok with ortho 5. Will rev Coumadin dosing with pt Consultation Date/Type/Reason Admit Date/Time Dec 01, 2016 at 21:54 Detailed Summary Cardiovascular: No chest pain Gastrointestinal: no complaints Genitourinary: no complaints Musculoskeletal: bone/joint pain (left foot pain is mild) Exam/Review of Systems Vital Signs Vitals Vital Signs Date Time Temp Pulse Resp B/P Pulse Ox O2 Delivery O2 Flow Rate FiO2 12/03/16 02:12 98.7 61 22 122/64 100 12/01/16 05:29 Room Air Intake and Output 12/02/16 12/02/16 12/03/16 15:00 23:00 07:00 Intake Total 700 ml 800 ml Output Total 450 ml 1400 ml Balance 250 ml -600 ml Exam Neck: No jvd Respiratory: clear to auscultation Cardiovascular: regular rate and rhythm Gastrointestinal: soft Extremities: edema (and no calf tend on right) Results Result Diagram: 12/03/16 0423 12/03/16 0423 Results 24 hrs Laboratory Tests Test 12/03/16 04:23 White Blood Count 8.6 Red Blood Count 3.76 L Hemoglobin 10.8 L Hematocrit 32.6 L Mean Corpuscular Volume 86.7 Mean Corpuscular Hemoglobin 28.7 L Mean Corpuscular Hemoglobin Concent 33.1 Red Cell Distribution Width 14.9 H Platelet Count 142 Mean Platelet Volume 11.6 H Neutrophils % 75.1 Lymphocytes % 11.7 L Monocytes % 9.3 Eosinophils % 3.2 Basophils % 0.5 Nucleated Red Blood Cells % 0.0 Neutrophils # 6.5 Lymphocytes # 1.0 Monocytes # 0.8 Eosinophils # 0.3 Basophils # 0.0 Nucleated Red Blood Cells # 0.0 Prothrombin Time 22.6 #H Prothrombin Time Ratio 1.8 INR International Normalized Ratio 1.97 Sodium Level 136 Potassium Level 3.8 Chloride Level 105 Carbon Dioxide Level 28 Anion Gap 7 L Blood Urea Nitrogen 11 Creatinine 0.77 Glucose Level 122 Calcium Level 9.1 Medications Medications Current Medications Cephalexin (Keflex) 500 mg Q8 PO Last administered on 12/03/16t 05:57; Admin Dose 500 MG; Start 12/02/16 at 14:00 Oxycodone/ Acetaminophen (Percocet (5/ 325)) 1 tab Q4H PRN PO PAIN Last administered on 12/01/16 21:13; Admin Dose 1 TAB; Start 11/30/16 at 07:00 Senna/Docusate Sodium (Senokot-S) 1 tab BID PO Last administered on 12/02/16 20:08; Admin Dose 1 TAB; Start 11/30/16 at 21:00 Bisacodyl 10 mg 10 mg DAILY PRN [place] CONSTIPATION; Start 11/30/16 at 12:30 Sodium Chloride (NS) 1,000 ml @ 100 mls/hr Q10H IV Last administered on 17:16; Admin Dose 100 MLS/HR; Start 11/30/16 at 12:26 Oxycodone/ Acetaminophen (Percocet (5/ 325)) 2 tab Q4H PRN PO PAIN Last administered on 12/03/16 01:02; Admin Dose 2 TAB; Start 11/30/16 at 12:30 Morphine Sulfate (morphine) 5 mg Q4H PRN IV PAIN LEVEL 7-10; Start 11/30/16 at 12:30 Ondansetron HCl (Zofran Inj) 4 mg Q4H PRN IV NAUSEA AND/OR VOMITING; Start 02/05 at 12:30 Diphenhydramine HCl (Benadryl) 25 mg Q4H PRN PO ITCHING; Start 11/30/16 at 12: 30 Morphine Sulfate (morphine) 1.5 MG DOSE 10 ... Q4PCA IV Last administered on 18:49; Admin Dose 30 MG; Start 11/30/16 at 12:30 Naloxone HCl (Narcan) 0.2 mg Q2M PRN IV FOR RESP RATE 8 OR LESS; Start at 13:00 Atorvastatin Calcium (Lipitor) 40 mg QHS PO Last administered on 12/02/16 20: 08; Admin Dose 40 MG; Start 11/30/16 at 21:00 Enalapril Maleate (Vasotec) 5 mg DAILY PO Last administered on 12/02/16 09:00 ; Admin Dose 5 MG; Start 11/30/16 at 14:00 Metoprolol Succinate (Toprol Xl) 50 mg BID PO Last administered on 12/02/16 20 :08; Admin Dose 50 MG; Start 11/30/16 at 14:00 Tamsulosin HCl (Flomax) 0.4 mg HS PO Last administered on 12/02/16 20:08; Admin Dose 0.4 MG; Start 11/30/16 at 21:00 KAELA BALDERRAMA MD Dec 03, 2016 07:41
[2016-12-03 08:12] VITALS: BP 141/65; RESP 18
[2016-12-03] MEDS: ENALAPRIL 5 MG TAB PO SCH (08:35)
[2016-12-03] MEDS: METOPROLOL (XL) 100 MG TAB PO SCH (08:35)
[2016-12-03] MEDS: SENNA/DOCUSATE NA (8.6MG/50MG) TAB PO SCH (08:35)
--- NOTE | 2016-12-04 13:19 | DS ---
DATE OF ADMISSION: 12/01/2016 DATE OF DISCHARGE: 12/03/2016 DISCHARGE DIAGNOSES: 1. 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 Surgery on 11/30 is oblique fibular osteotomy, left ankle. 2. Arthrodesis, left ankle. 3. Arthrodesis left subtalar joint. 4. Insertion of bone graft, allograft and autograft into the arthrodesis sites. 5. Insertion of a PTC Valor intramedullary nail to secure the fusion. HOSPITAL COURSE: Patient is a 71-year-old male with a long history of pain in his left ankle, admitted now for fusion of ankle and subtalar joint. PAST MEDICAL HISTORY: See the History and Physical record. PHYSICAL EXAMINATION: ORTHOPEDIC: Revealed diffuse pain about the ankle and subtalar joint, with significant loss of motion in all planes. LABORATORY: Normal. Chest x-ray was clear. EKG was stable. HOSPITAL COURSE: The patient was cleared medically, taken to operating room, underwent the abovementioned procedure. Postoperatively, he was up ambulating the 1st postoperative day and will be discharged on the 2nd postoperative day, and be followed in the office in 1 week. During the hospital, he had a catheter in place for 1 day and then it was removed and he was able to urinate. Dictated By: Abdiel Hendrix MD /erasmo/anoop /Document#: [id number] CC: Mark De Jesus MD;*EndCC*
== END 2016-12-03 10:35 | disposition home or self-care (01) ==
LOC: SDS 05:39 → SUR 05:39 → UNDOFXSDCSVC 12:57 → MS1 12:57 → UNDOFXSDCACCOM 12:57 → UNDOADMOB 12:57 → UNDOFXSDCRRACCOM 12:57 → UNDOFXSDCSVC 13:29 → MS1 13:29 → SUR 12-01 13:29 → MS1 12-01 21:54
PROVIDERS: ADMIT Orthopaedic Surgery; ATTEND Orthopaedic Surgery
DX: M19.072 Primary osteoarthritis, left ankle and foot (principal); E78.5 Hyperlipidemia, unspecified; I10 Essential (primary) hypertension; I25.10 Atherosclerotic heart disease of native coronary artery without angina pectoris; Z85.46 Personal history of malignant neoplasm of prostate; Z95.2 Presence of prosthetic heart valve; Z79.01 Long term (current) use of anticoagulants; I25.2 Old myocardial infarction; N40.0 Benign prostatic hyperplasia without lower urinary tract symptoms; E87.8 Other disorders of electrolyte and fluid balance, not elsewhere classified; I35.9 Nonrheumatic aortic valve disorder, unspecified
CPT/HCPCS: 27870; 28725; 73610; 80048; 80053; 81001; 82306; 82652; 83735; 84100; 85025; 85610; 85730; 87070; 87086; 96361; 96365; 96366; 96375; 97116; 97163; C1713; C1762; G0378; J0690; J2250; J2270; J2405; J2795; J3010; J3475; J7030

== ENCOUNTER → 2017-06-05 | Outpatient (CLI) | END | disposition home or self-care (01) ==

== ENCOUNTER → 2017-07-06 | Outpatient (CLI) | END | disposition home or self-care (01) ==